=== PATIENT | female | born 1985 | race Caucasian/White ===

== ENCOUNTER 2016-11-06 23:14 | Emergency (ER) | payer BC ==
[~2016-11-06] VITALS: Ht 162.6 cm; Wt 58.0 kg
[2016-11-06 23:16] VITALS: TEMP 36.4; Ht 162.6 cm; Wt 58.0 kg
--- NOTE | 2016-11-06 23:29 | EMERGENCY ROOM VISIT NOTE ---
History Report prepared by Ayse: Anil Hughes Under the Supervision of: Dr. Swapnil Burnham M.D. First contact with patient: 23:22 Chief Complaint: BITE Stated Complaint: DOG BITE TO NOSE History of Present Illness The patient is a 31 year old female who presents to the Emergency Room with complaints of an acute dog bite to the nose that occurred just prior to arrival. The patient was bit by her own dog, which is a chihuahua-pug hybrid. The dogs shots are up to date. The patient's last tetanus was approximately 3 years ago. She is not on any blood thinners. The patient admits to having some alcohol tonight. The patient denies any history of significant infections. The patient denies any previous surgeries. Source of History: patient Onset: [employer] Position: nose Quality: other (dog bite) Timing: other (acute) Review of Systems See HPI for pertinent positives & negatives. A total of 6 systems reviewed and were otherwise negative. Past Medical & Surgical Medical Problems: (1) No significant past medical history Family History No pertinent family history Social History Smoking Status: Never Smoker Occupation Status: employed Current/Historical Medications Scheduled Amoxicillin & Pot Clavulanate (Augmentin 875-125 mg), 875 MG PO BID Sertraline (Zoloft), 50 MG PO DAILY Scheduled PRN Epinephrine (Epipen), 0.3 MG IM UD PRN for ALLERGIC REACTION Rizatriptan Benzoate (Maxalt), 10 MG PO UD PRN for Headache Allergies Coded Allergies: Milk (Verified Allergy, Severe, ANAPHYLAXIS, 11/06/16) Physical Exam Vital Signs Date Time Temp Pulse Resp B/P Pulse Ox O2 Delivery O2 Flow Rate FiO2 11/07/16 00:01 88 20 121/72 100 Room Air 11/06/16 23:16 36.4 88 18 126/80 100 Room Air Physical Exam GENERAL: Patient is well appearing and in no acute distress. HEENT: Normocephalic atraumatic, mucous membranes moist, no nasal congestion, no scleral icterus. There is a 2 cm curving laceration of the right distal nares that is mildly gaping with mild venous oozing, proximal to this has a puncture wound of the right nares extending through to inner nares without active bleeding, 1.5 cm abrasion at the base of the left nares near eye. NECK: No stridor, no adenopathy, no meningismus, trachea is midline. LUNGS: No dyspnea. Clear to auscultation and equal bilaterally. No wheeze, no rhonchi. HEART: Regular rate and rhythm. No murmurs, rubs, gallops appreciated. NEUROLOGIC: Alert and oriented, no acute motor or sensory deficits, no focal weakness, cranial nerves grossly intact. SKIN: No rash, no jaundice, no diaphoresis. Medical Decision & Procedures Medications Administered Medications (Trade) Dose Ordered Sig/[facility] Route Start Time Stop Time Status Last Admin Dose Admin Amoxicillin/ Clavulanate Potassium (Augmentin Tab) 875 mg ONE ONCE PO 11/06/16 23:30 11/06/16 23:31 DC 11/06/16 23:31 875 MG Procedure Location: right distal nares. Total length: 2 cm. Complexity: curving. Verbal consent was obtained after the risks and benefits were explained, including but not limited to bleeding, scarring, infection, pain, and bone/joint /nerve damage. At this time, the risks of the procedure are less than the risks of NOT performing the procedure. A time out was taken and the correct patient and site identified. The skin was prepped with betadine. The target area was anesthetized with 1% lidocaine without epinephrine. The skin was re-prepped with betadine and a sterile field set. The wound was explored for foreign bodies and none found. Examination revealed no injury to deep structures such as tendons, bone, or significant blood vessels. Debridement was not performed. The wound edges were approximated using 3, 6-0 simple interrupted nylon sutures. Hemostasis and excellent approximation was achieved. Antibacterial ointment and a sterile dressing applied. Detailed wound care instructions and signs and symptoms of infection reviewed with the patient. No complications and the patient tolerated the procedure well. ED Course 2324: The patient was evaluated in room C8. A complete history and physical exam was performed. 2330: Discussed the risks & benefits of laceration repair. 2330: Augmentin 875 mg PO. 2345: Laceration repaired. Please see procedural note above. 0010: Discussed the discharge instructions with the patient. She verbalized understanding and agreement. The patient is ready for discharge. Medical Decision Differential: Simple Laceration, Complex Laceration, Imbedded Foreign Body, Contamination/Infection Risk, Neurovascular Compromise, Tendon Injury, as well as Tetanus Status, amongst other pathologies entertained. Very pleasant female with laceration over right tip of nose as well as puncture wound right nares and abrasion left promixal nares below eye after bite by her own dog. Tetanus UTD. Dogs shots all UTD per patient. No indication for rabies vaccination. She will need tip of nose closed as wound is open and on face to try and decrease scarring. Copiously cleansed with Betadine/saline prior to closure with minimal number sutures possible. Placed on Augmentin as well. Puncture right nares very small though red ashley inner nares noted without hematoma. This was also scrubbed. No need to close abrasion left side. Discussed wound care and monitoring. I made it very clear to her that given this is dog bite there is increased risk of infection, especially given sutures needed. Return in 5-6 days for suture removal. Impression Primary Impression: Dog bite Additional Impressions: Laceration of nose Puncture wound of nose Abrasion of face Scribe Attestation The scribe's documentation has been prepared under my direction and personally reviewed by me in its entirety. I confirm that the note above accurately reflects all work, treatment, procedures, and medical decision making performed by me. Departure Information Dispostion Home / Self-Care Prescriptions Amoxicillin & Pot Clavulanate (Augmentin 875-125 mg) 1 Tab Tab 875 MG PO BID for 10 Days, #20 TAB Prov: Swapnil Burnham M.D. 11/07/16 Referrals Unique Sotomayor M.D. (PCP) Forms HOME CARE DOCUMENTATION FORM, IMPORTANT VISIT INFORMATION Patient Instructions ED Laceration Facial Sutr Tape, [facility] Additional Instructions Return in 5-6 days for suture removal, earlier if any signs of infection or wound starting to come apart. Problem Qualifiers Primary Impression: Dog bite Encounter type: initial encounter Qualified Codes: W54.0XXA - Bitten by dog , initial encounter Additional Impressions: Laceration of nose Encounter type: initial encounter Qualified Codes: S01.21XA - Laceration without foreign body of nose, initial encounter Puncture wound of nose Encounter type: initial encounter Qualified Codes: S01.23XA - Puncture wound without foreign body of nose, initial encounter Abrasion of face Encounter type: initial encounter Qualified Codes: S00.81XA - Abrasion of other part of head, initial encounter
[2016-11-06] MEDS ORDERED: AMOXICILLIN/CLAVULANATE TAB 875 MG TAB PO ONE (23:30)
[2016-11-06] MEDS ORDERED: XYLOCAINE 1%/SOD BICARB 20 ML VIAL INFIL ONE (23:30)
[2016-11-06] MEDS ORDERED: EPP3/2 IM (23:58)
[2016-11-06] MEDS ORDERED: SERT50TA PO (23:58)
[2016-11-06] MEDS ORDERED: RIZA10TA18 PO (23:58)
[2016-11-07 00:01] VITALS: BP 121/72; PULSE 88; O2SAT 100
[2016-11-07] MEDS ORDERED: AMOX875T PO (00:03)
== END 2016-11-07 00:10 | disposition home or self-care (01) ==
LOC: C.EDB 23:16 → C.EDC 11-07 00:10
DX: S01.21XA Laceration without foreign body of nose, initial encounter (principal); S01.23XA Puncture wound without foreign body of nose, initial encounter; Z79.899 Other long term (current) drug therapy; W54.0XXA Bitten by dog, initial encounter

== ENCOUNTER 2016-11-11 15:23 | Emergency (ER) | payer BC ==
[~2016-11-11] VITALS: Ht 165.1 cm; Wt 57.2 kg
[~2016-11-11 15:23] MED LIST: AMOX875T PO; EPP3/2 IM; RIZA10TA18 PO; SERT50TA PO
[2016-11-11 15:28] VITALS: BP 108/73; PULSE 73; TEMP 36.6; O2SAT 100; Ht 165.1 cm; Wt 57.2 kg
--- NOTE | 2016-11-11 15:40 | EMERGENCY ROOM VISIT NOTE ---
ED Visit Note First contact with patient: 15:33 CHIEF COMPLAINT: Suture removal from her nose HISTORY of present illness: This 31-year-old female patient returns to the ED today for removal of sutures that were placed 5 days ago into her nose. There has been no swelling, redness, or drainage from the wound. The patient feels like the laceration is healing well. REVIEW OF SYSTEMS: 6 system review was performed and was negative unless stated otherwise in history of present illness. PMH: The patient is healthy; there is no significant medical or surgical history. SOCIAL HISTORY: Patient lives with her significant other. PHYSICAL EXAM: Vital Signs were reviewed: Reviewed Nurse's notes. GEN.: 31-year -old white female appears in no acute distress. MENTAL Status: Alert and oriented 3. NOSE: There is a sutured wound on the nose with no signs of infection. There is no erythema, swelling, or tenderness. EMERGENCY DEPARTMENT COURSE: The sutures were removed without any difficulty and there was no separation of the wound edges. DIAGNOSIS: Healing nasal laceration and suture removal DISCHARGE INSTRUCTIONS AND TREATMENT: Wash any remaining crusts off of the wound today and resume your normal activities. Problem List Medical Problems: (1) No significant past medical history Status: Chronic Current/Historical Medications Scheduled Amoxicillin & Pot Clavulanate (Augmentin 875-125 mg), 875 MG PO BID Sertraline (Zoloft), 50 MG PO DAILY Scheduled PRN Epinephrine (Epipen), 0.3 MG IM UD PRN for ALLERGIC REACTION Rizatriptan Benzoate (Maxalt), 10 MG PO UD PRN for Headache Allergies Coded Allergies: Milk (Verified Allergy, Severe, ANAPHYLAXIS, 11/06/16) Vital Signs Date Time Temp Pulse Resp B/P Pulse Ox O2 Delivery O2 Flow Rate FiO2 11/11/16 15:28 36.6 73 16 108/73 100 Room Air Departure Information Referrals No Doctor, Assigned (PCP) Patient Instructions [facility]
== END 2016-11-11 16:01 | disposition home or self-care (01) ==
LOC: C.EDB 15:25 → C.EDD 16:01
DX: S01.21XD Laceration without foreign body of nose, subsequent encounter (principal); X58.XXXD Exposure to other specified factors, subsequent encounter

== ENCOUNTER → 2017-09-07 | Outpatient (CLI) | payer BC ==
[~2017-09-07] MED LIST changes: -AMOX875T PO
== END | disposition home or self-care (01) ==
LOC: C.PAPS 09:20
PROVIDERS: ATTEND Obstetrics & Gynecology
DX: O30.009 Twin pregnancy, unspecified number of placenta and unspecified number of amniotic sacs, unspecified trimester (principal)

== ENCOUNTER → 2017-09-07 | Outpatient (CLI) | payer BC ==
[2017-09-07 17:38] LABS: BASO % 0.7 %; BASO ABS # 0.04 K/uL (0-0.2); EOS % 2.5 %; EOS ABS # 0.15 K/uL (0-0.5); HEMOGLOBIN 10.9 g/dL (12.0-16.0); IG# 0.02 K/uL (0.00-0.02); LYMPH % 34.5 %; LYMPH ABS # 2.05 K/uL (1.2-3.4); MEAN CORPUSCULAR HEMOGLOBIN 29.1 pg (25-34); MEAN PLATELET VOLUME 11.9 fL (7.4-10.4); MONO % 7.7 %; MONO ABS # 0.46 K/uL (0.11-0.59); NEUT % 54.3 %; NEUT ABS # 3.23 K/uL (1.4-6.5); PLATELET COUNT 225 K/uL (130-400); RED CELL DISTRIBUTION WIDTH CV 13.7 % (11.5-14.5); RED CELL DISTRIBUTION WIDTH SD 44.4 fL (36.4-46.3); WHITE BLOOD COUNT 5.95 K/uL (4.8-10.8)
== END | disposition home or self-care (01) ==
LOC: C.LAB1850 16:46
PROVIDERS: ATTEND Obstetrics & Gynecology
DX: Z34.01 Encounter for supervision of normal first pregnancy, first trimester (principal)

== ENCOUNTER → 2017-11-03 | Outpatient (CLI) | payer BC | END | disposition home or self-care (01) | LOC: C.LAB1850 14:43 | PROVIDERS: ATTEND Obstetrics & Gynecology | DX: O30.039 Twin pregnancy, monochorionic/diamniotic, unspecified trimester (principal); Z3A.00 Weeks of gestation of pregnancy not specified ==

== ENCOUNTER → 2017-12-06 | Outpatient (CLI) | payer BC | END | disposition home or self-care (01) | LOC: C.CPL 12:59 | PROVIDERS: ATTEND Obstetrics & Gynecology Maternal & Fetal Medicine | DX: F41.8 Other specified anxiety disorders (principal); O34.40 Maternal care for other abnormalities of cervix, unspecified trimester; Z3A.18 18 weeks gestation of pregnancy; Z36.86 Encounter for antenatal screening for cervical length; Z36.0 Encounter for antenatal screening for chromosomal anomalies; Z36.3 Encounter for antenatal screening for malformations; O99.340 Other mental disorders complicating pregnancy, unspecified trimester; O30.009 Twin pregnancy, unspecified number of placenta and unspecified number of amniotic sacs, unspecified trimester; O09.899 Supervision of other high risk pregnancies, unspecified trimester ==